=== PATIENT | female | born 1990 | race Two or more races ===

== ENCOUNTER 2023-02-08 20:34 | Emergency (ER) | payer OTHER ==
[~2023-02-08] VITALS: Ht 157.5 cm; Wt 81.6 kg
[~2023-02-08 20:34] MED LIST: NO TOMA MEDICAMENTO
== END 2023-02-09 00:33 | disposition home or self-care (01) ==
LOC: ER 20:34
PROVIDERS: General Practice
DX: K21.9 Gastro-esophageal reflux disease without esophagitis (principal); Z88.6 Allergy status to analgesic agent; Z88.0 Allergy status to penicillin; Z88.8 Allergy status to other drugs, medicaments and biological substances